=== PATIENT | female | born 1990 | race Caucasian/White ===

== ENCOUNTER → 2017-06-07 | Outpatient (CLI) | payer BC ==
[~2017-06-07] MED LIST: ACHD5005 PO; CEFD300C3 PO; CETI10CA PO; DOCU-143 PO; DOCU100C37 PO; FERR325T18 PO; IBUP-1773 PO; PREN-98 PO
--- NOTE | 2017-06-07 11:42 | Diagnostic Imaging Report ---
INDICATION: survey. TECHNIQUE: Multiple real-time grayscale images were obtained over the gravid uterus. COMPARISON: None. FINDINGS: There is a single live fetus in a breech presentation. The placenta is posterior and to the left. The amniotic fluid volume is normal. heart rate is recorded at 128 beats per minute. Cervical length is 5.1 cm. Kidneys, bladder, and stomach are unremarkable. brain and spine are unremarkable. There is a four-chamber heart. There is a three-vessel cord with normal cord insertion. Biometrical measurements are as follows: Biparietal 4.74 cm, age 20 weeks 3 days. Head circumference 17.46 cm, age 20 weeks 0 days. Abdominal circumference 15.54 cm, age 20 weeks 5 days. Femur length 3.48 cm, age 21 weeks 0 days. Sonographic estimate age: 20 weeks 4 days. Sonographic estimated date of delivery: 10-21-17. Estimated Weight: 373 gm (+/- 55 gm). LMP percentile: 62%. heart rate: 128 beats per minute. number: 1 of 1. IMPRESSION: Single live IUP of approximately 20-21 weeks gestational age. The estimated date of confinement sonographically is 10/21/2017. No complicating features are detected. Dictated by: Dictated on workstation # [id number]
== END ==
LOC: RAD 10:03
PROVIDERS: ATTEND Obstetrics & Gynecology
DX: Z34.92 Encounter for supervision of normal pregnancy, unspecified, second trimester (principal); Z3A.20 20 weeks gestation of pregnancy
CPT/HCPCS: 76805

== ENCOUNTER 2017-10-13 10:35 | Inpatient (IN) | payer BC ==
[2017-10-13] VITALS (47 sets, daily range): BP systolic 11–138; BP diastolic 1–90
[~2017-10-13] VITALS: Ht 167.6 cm; Wt 83.5 kg
[2017-10-13 11:08] LABS: BASOPHILS % (AUTO) 0 % (0-10); EOSINOPHILS # (AUTO) 0.3 10^3/uL (0.0-0.3); EOSINOPHILS % (AUTO) 3 % (0-10); HEMATOCRIT 34 % (35-52); HEMOGLOBIN 11.6 G/DL (11.5-16.0); LYMPHOCYTES % (AUTO) 18 % (12-44); MEAN CORPUSCULAR HEMOGLOBIN 31 PG (25-34); MEAN CORPUSCULAR HGB CONC 34 G/DL (32-36); MEAN CORPUSCULAR VOLUME 91 FL (80-99); MONOCYTES # (AUTO) 0.6 X 10^3 (0.0-1.0); MONOCYTES % (AUTO) 5 % (0-12); NEUTROPHILS # (AUTO) 8.3 X 10^3 (1.8-7.8); NEUTROPHILS % (AUTO) 74 % (42-75); PLATELET COUNT 152 10^3/uL (130-400); RED BLOOD COUNT 3.72 10^6/uL (4.35-5.85); RED CELL DISTRIBUTION WIDTH 13.1 % (10.0-14.5); WHITE BLOOD COUNT 11.3 10^3/uL (4.3-11.0)
--- NOTE | 2017-10-13 11:23 | History & Physical-OB ---
OB - Chief Complaint & HPI Date/Time Date of Admission: Date of Admission: Oct 13, 2017 at 10:35 am Time Seen by Provider: 11:00 Chief Complaint/History OB-Reason for Admission/Chief: Onset of Labor Hx : 2 Hx Para: 1 Expected Date of Delivery: Oct 22, 2017 Gestational Age in Weeks: 38 Gestational Age in Days: 5 Other reason for admission: Patient presented to the office with regular contractions since last night, found to have made cervical change since yesterdays exam. Admission Nurse Assessment Rev: Yes History of Labs A pos Antibody neg RI RPR NR HBsAg nR HIV NR GC neg GBS neg Allergies and Home Medications Allergies Coded Allergies: morphine (Unverified Allergy, Mild, RASH, 04/14/10) Home Medications Cetirizine HCl 10 Mg Capsule, 10 MG PO DAILY, (Reported) Docusate Sodium 100 Mg Capsule, 100 MG PO DAILY, (Reported) Docusate Sodium 100 Mg Capsule, 100 MG PO BID PRN for CONSTIPATION Prescribed by: JONAH MCDONALD on 07/26/15938 Ferrous Sulfate 325 Mg Tablet, 325 MG PO BID WITH MEALS Prescribed by: JONAH MCDONALD on 07/26/15938 Hydrocodone Bit/Acetaminophen 1 Each Tablet, 1-2 TAB PO Q4H PRN for PAIN Prescribed by: JONAH MCDONALD on 07/26/15938 Ibuprofen 600 Mg Tablet, 600 MG PO Q6H Prescribed by: JONAH MCDONALD on 07/26/15938 Vit37/Iron/Folic Acid 1 Each Tab.chew, 1 EACH PO DAILY, (Reported) Patient Home Medication List Home Medication List Reviewed: Yes OB - History Hx of Present Care: Yes Ultrasounds: Normal mid trimester US Obstetrical Complications: None Medical Complications: None Delivery History Hx Blood Disorders: No Adverse Rxn to Tranfusion: No Patient Past Medical History n/a Social History/Family History Recent Infectious Disease Expo: No Immunizations Hepatitis A: Yes Hepatitis B: Yes Tetanus Booster (TDap): Less than 5yrs OB - Admission Exam Physical Exam HEENT: NCAT Heart: Rhythm Normal Lungs: Clear Abdomen: Gravid Extremities: Normal Reflexes: Normal Cervical Dilatation: 4cm Effacement: 75% Station: -1 Membranes: Intact Heart Rate: 130's Accelerations: Accelerations Present Decelerations: No Decelerations Short Term Variability: Present Usp Variability: Average (6-25) Contractions on Admission: 6-10 Minutes Apart Intensity: Mild Labs Laboratory Tests Test 10/13/17 10:55 Range/Units White Blood Count 11.3 H 4.3-11.0 10^3/uL Red Blood Count 3.72 L 4.35-5.85 10^6/uL Hemoglobin 11.6 11.5-16.0 G/DL Hematocrit 34 L 35-52 % Mean Corpuscular Volume 91 80-99 FL Mean Corpuscular Hemoglobin 31 25-34 PG Mean Corpuscular Hemoglobin Concent 34 32-36 G/DL Red Cell Distribution Width 13.1 10.0-14.5 % Platelet Count 152 130-400 10^3/uL Mean Platelet Volume 12.0 H 7.4-10.4 FL Neutrophils (%) (Auto) 74 42-75 % Lymphocytes (%) (Auto) 18 12-44 % Monocytes (%) (Auto) 5 0-12 % Eosinophils (%) (Auto) 3 0-10 % Basophils (%) (Auto) 0 0-10 % Neutrophils # (Auto) 8.3 H 1.8-7.8 X 10^3 Lymphocytes # (Auto) 2.0 1.0-4.0 X 10^3 Monocytes # (Auto) 0.6 0.0-1.0 X 10^3 Eosinophils # (Auto) 0.3 0.0-0.3 10^3/uL Basophils # (Auto) 0.0 0.0-0.1 10^3/uL OB - Assessment/Plan/Diagnosis Assessment Assessment: active labor Admission Dx 27 yo @ 38.5 Active labor GBS neg TOLAC Admission Status: Inpatient Order (span 2 midnights) Reason for Inpatient Admission: 27 yo @ 38.5 Active labor GBS neg TOLAC Plan Induction Method: JONAH REYES DO Oct 13, 2017 11:23 am
[2017-10-13] MEDS ORDERED: SUFENTA 0.6MCG/ML BUPIVA 0.125 100 ML ONE (11:38)
[2017-10-13] MEDS: D5 LR IV SOLUTION 1,000 ML IV SCH (11:51)
[2017-10-13] MEDS ORDERED: fentaNYL INJECTION 100 MCG/2 ML AMP ONE (12:13)
[2017-10-13] MEDS ORDERED: OXYTOCIN/NORMAL SALINE 500 ML IV SCH ×2 (13:19→20:31)
[2017-10-13] MEDS ORDERED: OXYTOCIN/NORMAL SALINE 500 ML IV ONE (13:21)
[2017-10-13] MEDS: CATHETER FLUSH 10 ML SYR IV SCH (14:00)
[2017-10-13] MEDS ORDERED: LACTATED RINGERS 1,000 ML IV ONE (16:01)
[2017-10-13] MEDS ORDERED: METOCLOPRAMIDE INJ 10 MG/2 ML (REGLAN) IV PRN (16:15)
[2017-10-13] MEDS ORDERED: ONDANSETRON 4 MG/2 ML (SDV) Z0FRAN IV PRN (16:15)
[2017-10-13] MEDS ORDERED: NALOXONE 0.4 MG/ML 1 ML (NARCAN) VIAL IV PRN (16:15)
[2017-10-13] MEDS ORDERED: fentaNYL INJECTION 100 MCG/2 ML AMP INJ ONE (16:15)
[2017-10-13] MEDS ORDERED: EPIDURAL (SUFENTA 0.6MCG/ML BUPIVA 0.125%) 100 ML BAG EPI SCH (16:15)
[2017-10-13] MEDS ORDERED: LIDOCAINE/EPI 2% 1:200,00 (XYLOCAINE) 10 ML VIAL ONE ×2 (19:38)
--- NOTE | 2017-10-13 20:38 | OB Labor & Delivery Record ---
L&D History Date of Service Date of Service: Oct 13, 2017 History Expected Date of Delivery: Oct 22, 2017 Gestational Age in Weeks: 38 Hx : 2 Hx Para: 1 Complications Events: Routine care Operative Indications (Cesarea: N/A-Vaginal Delivery Intrapartal Events: Ineffective Pushing Other Complications significant labial and vaginal wall swelling/edema L&D Stage1 Stage One Onset of Labor - Date: Oct 13, 2017 Monitors and Tracing Monitor Mode: External Heart Rate: 125 Monitor Accelerations: Uniform Monitor Decelerations: None Station: 0 Director [employer]ing Variability: Average (6-10) Short Term Variability: Present Presentation: Vertex Vital Signs VS - Last 72 Hours, by Label 10/13/17 10/13/17 10/13/17 10/13/17 10:47 11:50 11:55 12:00 Pulse 101 83 82 72 Resp 18 18 18 18 B/P (MAP) 125/71 (89) 128/65 (86) 132/68 (89) 114/72 (86) Pulse Ox 100 99 98 O2 Delivery Room Air Room Air Room Air Room Air 10/13/17 10/13/17 10/13/17 10/13/17 12:05 12:10 12:15 12:20 Pulse 82 78 92 73 Resp 18 18 18 18 B/P (MAP) 122/77 (92) 125/79 (94) 119/66 (83) 118/62 (80) Pulse Ox 98 99 98 98 O2 Delivery Room Air Room Air Room Air Room Air 10/13/17 10/13/17 10/13/17 10/13/17 12:25 12:30 12:45 13:00 Pulse 80 68 71 80 Resp 18 18 18 18 B/P (MAP) 118/66 (83) 126/65 (85) 117/66 (83) 120/67 (84) Pulse Ox 97 96 96 97 O2 Delivery Room Air Room Air Room Air Room Air 10/13/17 10/13/17 10/13/17 10/13/17 13:15 13:30 13:45 14:00 Pulse 71 86 68 61 Resp 18 18 18 18 B/P (MAP) 111/61 (78) 118/69 (85) 111/66 (81) 110/58 (75) Pulse Ox 97 98 96 96 O2 Delivery Room Air Room Air Room Air Room Air 10/13/17 10/13/17 10/13/17 10/13/17 14:15 14:30 14:45 14:51 Temp 97.4 Pulse 66 70 64 Resp 18 18 18 B/P (MAP) 107/58 (74) 109/64 (79) 110/60 (77) Pulse Ox 97 97 97 O2 Delivery Room Air Room Air Room Air 10/13/17 10/13/17 10/13/17 10/13/17 15:00 15:15 15:30 15:45 Pulse 79 71 66 63 Resp 18 18 18 18 B/P (MAP) 116/56 (76) 120/58 (78) 113/63 (80) 116/70 (85) Pulse Ox 99 97 97 98 O2 Delivery Room Air Room Air Room Air Room Air 10/13/17 10/13/17 10/13/17 10/13/17 16:00 16:15 16:30 16:45 Pulse 64 74 71 65 Resp 18 18 18 18 B/P (MAP) 109/68 (82) 110/67 (81) 119/62 (81) 116/66 (83) Pulse Ox 98 98 98 98 O2 Delivery Room Air Room Air Room Air Room Air 10/13/17 10/13/17 10/13/17 10/13/17 17:00 17:15 17:30 17:45 Pulse 64 66 65 71 Resp 18 18 18 18 B/P (MAP) 118/66 (83) 112/65 (81) 113/63 (80) 120/59 (79) Pulse Ox 98 98 98 98 O2 Delivery Room Air Room Air Room Air Room Air 10/13/17 10/13/17 10/13/17 10/13/17 18:00 18:15 18:30 18:45 Pulse 68 63 81 70 Resp 18 18 18 18 B/P (MAP) 114/1 (38) 136/63 (87) 112/60 (77) 119/58 (78) Pulse Ox 98 93 99 100 O2 Delivery Room Air Room Air Room Air Room Air 10/13/17 19:00 Pulse 74 Resp 18 B/P (MAP) 131/62 (85) Pulse Ox 99 O2 Delivery Room Air Rupture of Membranes Spontaneous Ruture of Membrane: No Amniotic Membrane Rupture Time: 1220 Amniotic Membrane Fluid Desc.: Clear Vaginal Bleeding Description: Normal Show Induction/Anesthesia Epidural Cath Placement - Time: 1203 Progress/Notes Pitocin augmentation started per my protocol after AROM performed and epidural received. Patient progressed over the several hours to complete and +1 station L&D Stage2 Stage Two Stage II Date: Oct 13, 2017 Monitors and Tracing Monitor Mode: External Heart Rate: 125 Monitor Accelerations: Uniform Monitor Decelerations: Variable Short Term Variability: Present Position: Right Occiput Anterior Presentation: Vertex Signs of Distress by FHT Signs of Distress Repetitive deepening variable decelerations into the 50s to 60s, patient progressed vertex to +2-+3 station allow for low vacuum extraction. RML cut, and area infiltrated with 1%lidocaine with epi. Saginal suture identified and kiwi cup placed down this, avoiding the fontanelles. With the next maternal push, vacuum suction appled to 550mm Hg, and with gentle downward then extension of the head, the infants head is delivered over RML. Suction released , and the anterior then posterior shoulders are then delivered without difficulty. The infant is then pulled out onto mothers abdomen. Cord Descript/Complications Cord Vessel Description: 3 Vessels Delivery Type Infant Delivery Method: Low Vacuum Extraction Anterior Shoulder: Left Episiotomy/Perineal Laceration Laceraction(s)/Extensions: Yes Episiotomy Description: Right Mediolateral Degree (describe repair) RML repaired in usual fashion with 3-0 and 2-0 vicryl suture. Superficial extension toward the rectum involving only cutaneous skin layer. Condition of Delivery 1 minute Comment: 8 5 minute Comment: 9 Notes Live female weight 8lbs 10 oz. Condition of Infant Condition of Infant: Living Exam: No Observed Abnormalities Resuscitation Resuscitation: N/A - Spontaneous Resp L&D Stage3 Stage Three Stage III Date: Oct 13, 2017 Pictocin Pitocin Administration mu/min: 10 Pitocin ml/hr: 10 Pitocin Administration Comment: 30 mu wide open ran after delivery of placenta Placenta Delivery Placenta Delivery: Spontaneous Delivery Summary Summary Estimated blood loss (mL): 450 Attending at delivery: Jonah Mcdonald DO Condition of Delivery Examined: Cervix Examined, Uterus Explored Post Hemorrhage: No Condition of Mother stable Condition of (s) stable JONAH MCDONALD DO Oct 13, 2017 8:38 pm
--- NOTE | 2017-10-13 20:41 | Discharge Inst-Women's Service ---
Discharge Inst-Women's Serv Depart Medication/Instructions New, Converted or Re-Newed RX: RX on Chart Consults/Follow Up Additional Follow Up: Yes Orders/Referrals Dr. Mcdonald in 6 weeks Activity Activity: Activity as Tolerated Driving Instructions: No Driving for 1 Week NO SMOKING: NO SMOKING Nothing Inside Vagina: No Douching, No [place], No Tampons Diet Discharge Diet: No Restrictions Symptoms to Report to : Bleeding Excessive, Pain Increased, Fever Over 101 Degrees F, Vaginal Bleeding Increase, Questions/Concerns For Any Problems or Questions: Contact Your Physician Skin/Wound Care Bathing Instructions: Shower (x 2 weeks or sitz baths) JONAH MCDONALD DO Oct 13, 2017 8:41 pm
[2017-10-13] MEDS ORDERED: ACHD5005 PO (20:43)
[2017-10-13] MEDS ORDERED: DIBU30OI TOP (20:43)
[2017-10-13] MEDS ORDERED: FERR325T18 PO (20:43)
[2017-10-13] MEDS ORDERED: IBUP-844 PO (20:43)
[2017-10-13] MEDS ORDERED: DOCU100C37 PO (20:43)
[2017-10-13] MEDS ORDERED: Benzocaine/Menthol TP (20:43)
[2017-10-13] MEDS ORDERED: TETANUS,DIPTH,PERTUSS P/F (BOOSTRIX) 0.5 ML VIAL IM ONE (20:45)
[2017-10-13] MEDS ORDERED: MEASLES,MUMPS,RUBELLA 1 EA INJ SQ ONE (20:45)
[2017-10-13] MEDS ORDERED: WITCH HAZEL(TUCKS) 40 EA JAR TOP PRN (20:45)
[2017-10-13] MEDS ORDERED: DIBUCAINE (NUPERCAINAL) 1% OINT 30 GM TOP PRN (20:45)
[2017-10-13] MEDS ORDERED: BENZOCAINE/MENTHOL (DERMOPLAST) 56 ML CAN TP PRN (20:45)
[2017-10-13] MEDS ORDERED: CATHETER FLUSH 10 ML SYR IV SCH (22:00)
[2017-10-14 00:55] VITALS: BP 116/60
[2017-10-14 04:00] VITALS: BP 108/62
[2017-10-14] MEDS: IBUPROFEN 600 MG (MOTRIN) TAB PO SCH ×4 (05:08→20:28)
[2017-10-14 06:11] LABS: BASOPHILS % (AUTO) 0 % (0-10); EOSINOPHILS # (AUTO) 0.3 10^3/uL (0.0-0.3); EOSINOPHILS % (AUTO) 3 % (0-10); HEMATOCRIT 26 % (35-52); HEMOGLOBIN 8.8 G/DL (11.5-16.0); LYMPHOCYTES # (AUTO) 2.7 X 10^3 (1.0-4.0); LYMPHOCYTES % (AUTO) 20 % (12-44); MEAN CORPUSCULAR HEMOGLOBIN 32 PG (25-34); MEAN CORPUSCULAR HGB CONC 34 G/DL (32-36); MEAN CORPUSCULAR VOLUME 92 FL (80-99); MEAN PLATELET VOLUME 11.8 FL (7.4-10.4); MONOCYTES # (AUTO) 0.9 X 10^3 (0.0-1.0); MONOCYTES % (AUTO) 6 % (0-12); NEUTROPHILS # (AUTO) 9.4 X 10^3 (1.8-7.8); NEUTROPHILS % (AUTO) 71 % (42-75); PLATELET COUNT 130 10^3/uL (130-400); RED BLOOD COUNT 2.78 10^6/uL (4.35-5.85); RED CELL DISTRIBUTION WIDTH 12.7 % (10.0-14.5); WHITE BLOOD COUNT 13.2 10^3/uL (4.3-11.0)
[2017-10-14] MEDS: DOCUSATE SODIUM 100 MG (COLACE) CAP PO SCH ×2 (07:50→20:28)
[2017-10-14] MEDS: PRENATAL VITAMIN 1 EA TAB PO SCH (07:50)
[2017-10-14] MEDS: FERROUS SULF 325 MG (IRON) TAB PO SCH (07:50)
[2017-10-14] MEDS: HYDROcodone/APAP 5 MG/325 MG (LORTAB) TAB PO PRN ×2 (07:56→16:40)
[2017-10-14 08:00] VITALS: BP 113/68
--- NOTE | 2017-10-14 08:08 | Anesthesia-Regional Post-Op ---
Regional Patient Condition Mental Status: Alert, Oriented x3 Circulation: Same as Pre-Op Headache: Absent Sensation: Full Recovery Motor Block: Absent Post Op Complications Complications None Follow Up Care/Instructions Patient Instructions None needed. Anesthesia/Patient Condition Patient is doing well, no complaints, stable vital signs, no apparent adverse anesthesia problems. No complications reported per nursing. XI SUNG CRNA Oct 14, 2017 08:08
--- NOTE | 2017-10-14 10:53 | Postpartum Progress Note ---
Note Note Day # 1 Subjective: Patient is without complaints. Ambulating, voiding. Tolerating a regular diet without nausea or vomiting. Normal lochia. Pain is well controlled with oral pain medications. Objective: Vital Sign - Last 24 Hours 10/13/17 10/13/17 10/13/17 10/13/17 11:50 11:55 12:00 12:05 Pulse 83 82 72 82 Resp 18 18 18 18 B/P (MAP) 128/65 (86) 132/68 (89) 114/72 (86) 122/77 (92) Pulse Ox 100 99 98 98 O2 Delivery Room Air Room Air Room Air Room Air 10/13/17 10/13/17 10/13/17 10/13/17 12:10 12:15 12:20 12:25 Pulse 78 92 73 80 Resp 18 18 18 18 B/P (MAP) 125/79 (94) 119/66 (83) 118/62 (80) 118/66 (83) Pulse Ox 99 98 98 97 O2 Delivery Room Air Room Air Room Air Room Air 10/13/17 10/13/17 10/13/17 10/13/17 12:30 12:45 13:00 13:15 Pulse 68 71 80 71 Resp 18 18 18 18 B/P (MAP) 126/65 (85) 117/66 (83) 120/67 (84) 111/61 (78) Pulse Ox 96 96 97 97 O2 Delivery Room Air Room Air Room Air Room Air 10/13/17 10/13/17 10/13/17 10/13/17 13:30 13:45 14:00 14:15 Pulse 86 68 61 66 Resp 18 18 18 18 B/P (MAP) 118/69 (85) 111/66 (81) 110/58 (75) 107/58 (74) Pulse Ox 98 96 96 97 O2 Delivery Room Air Room Air Room Air Room Air 10/13/17 10/13/17 10/13/17 10/13/17 14:30 14:45 14:51 15:00 Temp 97.4 Pulse 70 64 79 Resp 18 18 18 B/P (MAP) 109/64 (79) 110/60 (77) 116/56 (76) Pulse Ox 97 97 99 O2 Delivery Room Air Room Air Room Air 10/13/17 10/13/17 10/13/17 10/13/17 15:15 15:30 15:45 16:00 Pulse 71 66 63 64 Resp 18 18 18 18 B/P (MAP) 120/58 (78) 113/63 (80) 116/70 (85) 109/68 (82) Pulse Ox 97 97 98 98 O2 Delivery Room Air Room Air Room Air Room Air 10/13/17 10/13/17 10/13/17 10/13/17 16:15 16:30 16:45 17:00 Pulse 74 71 65 64 Resp 18 18 18 18 B/P (MAP) 110/67 (81) 119/62 (81) 116/66 (83) 118/66 (83) Pulse Ox 98 98 98 98 O2 Delivery Room Air Room Air Room Air Room Air 10/13/17 10/13/17 10/13/17 10/13/17 17:15 17:30 17:45 18:00 Pulse 66 65 71 68 Resp 18 18 18 18 B/P (MAP) 112/65 (81) 113/63 (80) 120/59 (79) 114/1 (38) Pulse Ox 98 98 98 98 O2 Delivery Room Air Room Air Room Air Room Air 10/13/17 10/13/17 10/13/17 10/13/17 18:15 18:30 18:45 19:00 Pulse 63 81 70 74 Resp 18 18 18 18 B/P (MAP) 136/63 (87) 112/60 (77) 119/58 (78) 131/62 (85) Pulse Ox 93 99 100 99 O2 Delivery Room Air Room Air Room Air Room Air 10/13/17 10/13/17 10/13/17 10/13/17 19:15 19:30 19:45 20:00 Temp 96.7 96.8 Pulse 79 79 84 Resp 18 18 18 B/P (MAP) 118/74 (89) 113/58 (76) 108/52 (70) Pulse Ox 99 99 99 O2 Delivery Room Air Room Air Room Air Room Air 10/13/17 10/13/17 10/13/17 10/13/17 20:15 20:30 20:45 21:00 Temp 96.8 Pulse 73 78 79 122 Resp 18 18 18 18 B/P (MAP) 106/52 (70) 109/53 (71) 113/56 (75) 118/54 (75) Pulse Ox 99 99 99 99 O2 Delivery Room Air Room Air Room Air Room Air 10/13/17 10/13/17 10/13/17 10/13/17 21:45 22:00 22:15 22:30 Pulse 173 78 78 81 Resp 18 18 18 18 B/P (MAP) 138/90 (106) 114/63 (80) 110/61 (77) 114/58 (76) Pulse Ox 99 99 99 99 O2 Delivery Room Air Room Air Room Air Room Air 10/14/17 10/14/17 10/14/17 00:55 04:00 08:00 Temp 97.9 97.3 97.4 Pulse 88 76 71 Resp 18 18 21 B/P (MAP) 116/60 (78) 108/62 (77) 113/68 (83) Pulse Ox 98 99 99 O2 Delivery Room Air Room Air Room Air Physical Exam: General - Alert and oriented, no apparent distress Abdomen - Soft, appropriately tender to palpation, non-distended, fundus firm at umbilicus Extremities - no edema, negative Rian's bilaterally Assessment: PPD 1 VAVD Acute blood loss anemia Plan: Routine care. Encourage breast feeding. Encourage ambulation. Ferrous sulfate supplementation. Plan for discharge tomorrow Vitals - Labs Vital Signs - I&O Vital Signs Date Time Temp Pulse Resp B/P (MAP) Pulse Ox O2 Delivery O2 Flow Rate FiO2 10/14/17 08:00 97.4 71 21 113/68 (83) 99 Room Air 10/14/17 04:00 97.3 76 18 108/62 (77) 99 Room Air 10/14/17 00:55 97.9 88 18 116/60 (78) 98 Room Air 10/13/17 22:30 81 18 114/58 (76) 99 Room Air 10/13/17 22:15 78 18 110/61 (77) 99 Room Air 10/13/17 22:00 78 18 114/63 (80) 99 Room Air 10/13/17 21:45 173 18 138/90 (106) 99 Room Air 10/13/17 21:00 96.8 122 18 118/54 (75) 99 Room Air 10/13/17 20:45 79 18 113/56 (75) 99 Room Air 10/13/17 20:30 78 18 109/53 (71) 99 Room Air 10/13/17 20:15 73 18 106/52 (70) 99 Room Air 10/13/17 20:00 96.8 84 18 108/52 (70) 99 Room Air 10/13/17 19:45 Room Air 10/13/17 19:30 79 18 113/58 (76) 99 Room Air 10/13/17 19:15 96.7 79 18 118/74 (89) 99 Room Air 10/13/17 19:00 74 18 131/62 (85) 99 Room Air 10/13/17 18:45 70 18 119/58 (78) 100 Room Air 10/13/17 18:30 81 18 112/60 (77) 99 Room Air 10/13/17 18:15 63 18 136/63 (87) 93 Room Air 10/13/17 18:00 68 18 114/1 (38) 98 Room Air 10/13/17 17:45 71 18 120/59 (79) 98 Room Air 10/13/17 17:30 65 18 113/63 (80) 98 Room Air 10/13/17 17:15 66 18 112/65 (81) 98 Room Air 10/13/17 17:00 64 18 118/66 (83) 98 Room Air 10/13/17 16:45 65 18 116/66 (83) 98 Room Air 10/13/17 16:30 71 18 119/62 (81) 98 Room Air 10/13/17 16:15 74 18 110/67 (81) 98 Room Air 10/13/17 16:00 64 18 109/68 (82) 98 Room Air 10/13/17 15:45 63 18 116/70 (85) 98 Room Air 10/13/17 15:30 66 18 113/63 (80) 97 Room Air 10/13/17 15:15 71 18 120/58 (78) 97 Room Air 10/13/17 15:00 79 18 116/56 (76) 99 Room Air 10/13/17 14:51 97.4 10/13/17 14:45 64 18 110/60 (77) 97 Room Air 10/13/17 14:30 70 18 109/64 (79) 97 Room Air 10/13/17 14:15 66 18 107/58 (74) 97 Room Air 10/13/17 14:00 61 18 110/58 (75) 96 Room Air 10/13/17 13:45 68 18 111/66 (81) 96 Room Air 10/13/17 13:30 86 18 118/69 (85) 98 Room Air 10/13/17 13:15 71 18 111/61 (78) 97 Room Air 10/13/17 13:00 80 18 120/67 (84) 97 Room Air 10/13/17 12:45 71 18 117/66 (83) 96 Room Air 10/13/17 12:30 68 18 126/65 (85) 96 Room Air 10/13/17 12:25 80 18 118/66 (83) 97 Room Air 10/13/17 12:20 73 18 118/62 (80) 98 Room Air 10/13/17 12:15 92 18 119/66 (83) 98 Room Air 10/13/17 12:10 78 18 125/79 (94) 99 Room Air 10/13/17 12:05 82 18 122/77 (92) 98 Room Air 10/13/17 12:00 72 18 114/72 (86) 98 Room Air 10/13/17 11:55 82 18 132/68 (89) 99 Room Air 10/13/17 11:50 83 18 128/65 (86) 100 Room Air Labs Laboratory Tests 10/13/17 10:55: White Blood Count 11.3H, Red Blood Count 3.72L, Hemoglobin 11.6, Hematocrit 34L , Mean Corpuscular Volume 91, Mean Corpuscular Hemoglobin 31, Mean Corpuscular Hemoglobin Concent 34, Red Cell Distribution Width 13.1, Platelet Count 152, Mean Platelet Volume 12.0H, Neutrophils (%) (Auto) 74, Lymphocytes (%) (Auto) 18 , Monocytes (%) (Auto) 5, Eosinophils (%) (Auto) 3, Basophils (%) (Auto) 0, Neutrophils # (Auto) 8.3H, Lymphocytes # (Auto) 2.0, Monocytes # (Auto) 0.6, Eosinophils # (Auto) 0.3, Basophils # (Auto) 0.0 10/14/17 05:50: White Blood Count 13.2H, Red Blood Count 2.78L, Hemoglobin 8.8#L, Hematocrit 26L , Mean Corpuscular Volume 92, Mean Corpuscular Hemoglobin 32, Mean Corpuscular Hemoglobin Concent 34, Red Cell Distribution Width 12.7, Platelet Count 130, Mean Platelet Volume 11.8H, Neutrophils (%) (Auto) 71, Lymphocytes (%) (Auto) 20 , Monocytes (%) (Auto) 6, Eosinophils (%) (Auto) 3, Basophils (%) (Auto) 0, Neutrophils # (Auto) 9.4H, Lymphocytes # (Auto) 2.7, Monocytes # (Auto) 0.9, Eosinophils # (Auto) 0.3, Basophils # (Auto) 0.0 JONAH MCDONALD DO Oct 14, 2017 10:53 am
[2017-10-14 12:30] VITALS: BP 118/59
[2017-10-14 16:00] VITALS: BP 115/66
[2017-10-14] MEDS: CATHETER FLUSH 10 ML SYR IV SCH (19:43)
[2017-10-14 20:05] VITALS: BP 121/75
[2017-10-14] MEDS: D5 LR IV SOLUTION 1,000 ML IV SCH (21:03)
[2017-10-15 02:00] VITALS: BP 108/67
[2017-10-15] MEDS: IBUPROFEN 600 MG (MOTRIN) TAB PO SCH ×2 (02:12→08:00)
[2017-10-15] MEDS: FERROUS SULF 325 MG (IRON) TAB PO SCH (07:59)
[2017-10-15 08:00] VITALS: BP 112/70
[2017-10-15] MEDS: PRENATAL VITAMIN 1 EA TAB PO SCH (08:00)
[2017-10-15] MEDS: DOCUSATE SODIUM 100 MG (COLACE) CAP PO SCH (08:00)
--- NOTE | 2017-10-15 08:41 | Postpartum Progress Note ---
Note Note Day # 2 Subjective: Patient is without complaints. Ambulating, voiding. Tolerating a regular diet without nausea or vomiting. Normal lochia. Pain is well controlled with oral pain medications. Objective: Vital Sign - Last 24 Hours 10/14/17 10/14/17 10/14/17 10/15/17 12:30 16:00 20:05 02:00 Temp 96.8 97.9 97.6 96.9 Pulse 84 81 74 70 Resp 21 16 16 17 B/P (MAP) 118/59 (78) 115/66 (82) 121/75 (90) 108/67 (81) Pulse Ox 99 99 97 98 O2 Delivery Room Air Room Air Room Air Room Air Physical Exam: General - Alert and oriented, no apparent distress Abdomen - Soft, appropriately tender to palpation, non-distended, fundus firm at umbilicus Extremities - no edema, negative Rian's bilaterally Assessment: PPD 2 VAVD Plan: Routine care. Encourage breast feeding. Encourage ambulation. Ferrous sulfate supplementation. Plan for discharge today Vitals - Labs Vital Signs - I&O Vital Signs Date Time Temp Pulse Resp B/P (MAP) Pulse Ox O2 Delivery O2 Flow Rate FiO2 10/15/17 02:00 96.9 70 17 108/67 (81) 98 Room Air 10/14/17 20:05 97.6 74 16 121/75 (90) 97 Room Air 10/14/17 16:00 97.9 81 16 115/66 (82) 99 Room Air 10/14/17 12:30 96.8 84 21 118/59 (78) 99 Room Air JONAH MCDONALD DO Oct 15, 2017 8:41 am
[2017-10-15] MEDS: HYDROcodone/APAP 5 MG/325 MG (LORTAB) TAB PO PRN (12:19)
== END 2017-10-15 12:25 | disposition home or self-care (01) | DRG 775 ==
LOC: LDRP 10:35
PROVIDERS: ADMIT Obstetrics & Gynecology; ATTEND Obstetrics & Gynecology
PROC: 10D07Z6 Extraction of Products of Conception, Vacuum, Via Natural or Artificial Opening (ICD-10-PCS; principal; 2017-10-13)
PROC: 0W8NXZZ Division of Female Perineum, External Approach (ICD-10-PCS; 2017-10-13)
DX: O76 Abnormality in fetal heart rate and rhythm complicating labor and delivery (principal); O90.81 Anemia of the puerperium; D62 Acute posthemorrhagic anemia; O26.893 Other specified pregnancy related conditions, third trimester; N90.89 Other specified noninflammatory disorders of vulva and perineum; Z3A.38 38 weeks gestation of pregnancy; Z37.0 Single live birth
CPT/HCPCS: 36415; 85025; 86850; 86900; 86901; 88307

== ENCOUNTER → 2019-05-26 | Outpatient (CLI) | payer BC ==
[~2019-05-26] MED LIST changes: +Benzocaine/Menthol TP; +DIBU30OI TOP; +IBUP-844 PO
--- NOTE | 2019-05-26 09:42 | Diagnostic Imaging Report ---
PROCEDURE: US Gallbladder. TECHNIQUE: Multiple real-time grayscale images were obtained over the right upper quadrant in various projections. INDICATION: Epigastric pain. Liver measures 16.1 cm. No discrete liver mass is detected. The portal vein is patent and shows normal direction of flow. Gallbladder demonstrates some questionable minimal sludge versus small stones. No wall thickening is seen. No biliary duct dilatation is identified. Pancreas is unremarkable. Aorta is nonaneurysmal. IVC is patent. Right kidney is without calculi or hydronephrosis. There is no ascites. IMPRESSION: Questionable minimal gallbladder sludge or small calculi. There is no evidence of acute cholecystitis. Dictated by: Dictated on workstation # [id number]
== END ==
LOC: RAD 07:50
PROVIDERS: ATTEND Surgery
DX: R10.13 Epigastric pain (principal)
CPT/HCPCS: 76705

== ENCOUNTER 2019-06-13 06:55 | Outpatient (CLI) | payer BC ==
[~2019-06-13] VITALS: Ht 167.7 cm; Wt 68.2 kg
[2019-06-15] MEDS ORDERED: DOCU-143 PO (11:53)
[2019-06-15] MEDS ORDERED: ACHD5005 PO (11:53)
== END 2019-06-13 10:31 | disposition home or self-care (01) ==
LOC: PREOP 06:55
PROVIDERS: ATTEND Surgery
DX: Z01.818 Encounter for other preprocedural examination (principal)

== ENCOUNTER → 2020-08-01 | Outpatient (CLI) | payer BC ==
--- NOTE | 2020-08-01 14:50 | Diagnostic Imaging Report ---
INDICATION: . Anatomic survey. 20 weeks, 2 days. TECHNIQUE: Multiple real-time grayscale images were obtained over the gravid uterus. COMPARISON: None. FINDINGS: The cervix measures 3 cm in length. The placenta is posterior with no evidence of previa. There is a single live intrauterine gestation in cephalic presentation. The cerebellum and cisterna magna are seen. The lateral ventricle is seen. A four-chamber heart is seen. The right and left ventricular outflow tracts are shown. The stomach is seen. The kidneys are seen. The cord insertion is seen. A three-vessel cord is demonstrated with two uterine arteries. The bladder is seen. The upper spine is seen. The lower spine is seen in transverse images but not sagittal. heart rate measures 144 BPM. Amniotic fluid index was not measured, but subjectively the amniotic fluid appears normal with vertical pockets measuring 2.8 cm. Biometrical measurements are as follows: Biparietal 4.33 cm, age 19 weeks 1 days. Head circumference 16.90 cm, age 19 weeks 4 days. Abdominal circumference 15.10 cm, age 20 weeks 3 days. Femur length 3.09 cm, age 19 weeks 5 days. Sonographic estimate age: 19 weeks 5 days. Sonographic estimated date of delivery: 12/21/2020. Estimated Weight: 320 gm (+/- 47 gm). LMP percentile: 26%. heart rate: 144 beats per minute. number: 1 of 1. IMPRESSION: 1. Single live intrauterine gestation measuring at 19 weeks and 5 days which is within range of the clinical dates. 2. No abnormality identified on the anatomic survey. Dictated by: Dictated on workstation # [id number]
== END ==
LOC: RAD 13:00
PROVIDERS: ATTEND Obstetrics & Gynecology
DX: Z34.02 Encounter for supervision of normal first pregnancy, second trimester (principal); Z3A.19 19 weeks gestation of pregnancy
CPT/HCPCS: 76805

== ENCOUNTER 2020-12-04 08:15 | Inpatient (IN) | payer BC ==
[2020-12-04] VITALS (37 sets, daily range): BP systolic 100–169; BP diastolic 53–78
[~2020-12-04] VITALS: Ht 167 cm; Wt 78.2 kg
[2020-12-04] MEDS ORDERED: AMPICILLIN FOR IV USE 2,000 MG in WATER (STERILE) FOR INJECTION 14.8 ML IV SCH (09:14)
[2020-12-04] MEDS ORDERED: D5 LR IV SOLUTION 1,000 ML IV SCH (09:15)
[2020-12-04] MEDS ORDERED: OXYTOCIN PRE-MIX DRIP 500 ML IV SCH ×2 (09:15→09:45)
[2020-12-04] MEDS ORDERED: OXYTOCIN PRE-MIX DRIP 500 ML IV ONE ×2 (09:33→16:25)
[2020-12-04] MEDS ORDERED: AMPICILLIN 2,000 MG/14.8 ML (IV USE) ONE (09:33)
--- NOTE | 2020-12-04 09:44 | History & Physical-OB ---
OB - Chief Complaint & HPI Date/Time Date of Admission: Date of Admission: Dec 04, 2020 at 9:03 am Date seen by a Provider: Dec 04, 2020 Time Seen by a Provider: 09:30 Chief Complaint/History OB-Reason for Admission/Chief: Induction of Labor Hx : 3 Hx Para: 2 Expected Date of Delivery: Dec 17, 2020 Gestational Age in Weeks: 38 Gestational Age in Days: 1 Indication for induction: medical complication Other reason for admission: Patient admitted for IOL secondary to oligohydramnios noted on US. She was measuring small in the office and BPP with EFW was performed. Fetus was measuring appropriately, however LEXY was <4 cm. Due to this recommendation was made for delivery due to her being past 37 weeks. Admission Nurse Assessment Rev: Yes History of Labs GBS pos Allergies and Home Medications Allergies Coded Allergies: morphine (Unverified Allergy, Mild, RASH, 04/14/10) Home Medications Docusate Sodium 100 Mg Capsule, 100 MG PO BID Prescribed by: ASA SHOEMAKER on 06/15/19 1153 Hydrocodone Bit/Acetaminophen 1 Tab Tab, 1-2 TAB PO Q6H PRN for PAIN-MODERATE Prescribed by: ASA SHOEMAKER on 06/15/19 1153 Patient Home Medication List Home Medication List Reviewed: Yes OB - History Hx of Present Care: Yes Ultrasounds: Abnormal US findings (oligohydramnios) Obstetrical Complications: None Medical Complications: None Delivery History Hx Blood Disorders: No Adverse Rxn to Tranfusion: No Patient Past Medical History n/a Immunizations Hepatitis A: Yes Hepatitis B: Yes Tetanus Booster (TDap): Less than 5yrs Date of Influenza Vaccine: Jan 17, 2019 OB - Admission Exam Physical Exam HEENT: NCAT Heart: Rhythm Normal Lungs: Clear Abdomen: Gravid Extremities: Normal Reflexes: Normal Cervical Dilatation: 2cm Effacement: 75% Station: -1 Membranes: Intact Heart Rate: 130's Accelerations: Accelerations Present Decelerations: No Decelerations Short Term Variability: Present Chcf Variability: Average (6-25) Contractions on Admission: 6-10 Minutes Apart Intensity: Mild OB - Assessment/Plan/Diagnosis Assessment Assessment: induction of labor Admission Dx 30 yo @ 38.1 TOLAC- history of successful x 1 Oligohydramnios GBS pos Admission Status: Inpatient Order (span 2 midnights) Reason for Inpatient Admission: IOL at 38 weeks Plan Plan: Induction Induction Method: per Pitocin Protocol JONAH MCDONALD DO Dec 04, 2020 9:44 am
[2020-12-04 10:36] LABS: BASOPHILS # (AUTO) 0.1 10^3/uL (0.0-0.1); BASOPHILS % (AUTO) 0 % (0-10); EOSINOPHILS # (AUTO) 0.3 10^3/uL (0.0-0.3); EOSINOPHILS % (AUTO) 3 % (0-10); HEMATOCRIT 35 % (35-52); HEMOGLOBIN 11.6 g/dL (11.5-16.0); LYMPHOCYTES % (AUTO) 18 % (12-44); MEAN CORPUSCULAR HEMOGLOBIN 32 pg (25-34); MEAN CORPUSCULAR HGB CONC 33 g/dL (32-36); MEAN CORPUSCULAR VOLUME 96 fL (80-99); MEAN PLATELET VOLUME 12.4 fL (9.0-12.2); MONOCYTES # (AUTO) 0.6 10^3/uL (0.0-1.0); MONOCYTES % (AUTO) 6 % (0-12); NEUTROPHILS # (AUTO) 8.2 10^3/uL (1.8-7.8); NEUTROPHILS % (AUTO) 73 % (42-75); PLATELET COUNT 136 10^3/uL (130-400); WHITE BLOOD COUNT 11.3 10^3/uL (4.3-11.0)
[2020-12-04] MEDS ORDERED: fentaNYL 2 mcg/ml BUPIVA 0.125 100 ML ONE (10:51)
[2020-12-04] MEDS ORDERED: NALOXONE 0.4 MG/ML 1 ML (NARCAN) VIAL IV PRN (11:30)
[2020-12-04] MEDS ORDERED: ONDANSETRON 4 MG/2 ML (SDV) Z0FRAN IV PRN (11:30)
[2020-12-04] MEDS ORDERED: EPIDURAL (fentaNYL 2 MCG/ML BUPIVA 0.125%)100 ML BAG EPI PRN (11:30)
[2020-12-04] MEDS ORDERED: LACTATED RINGERS 1,000 ML IV ONE ×2 (11:30)
[2020-12-04] MEDS ORDERED: fentaNYL INJ 100 MCG/2 ML AMP INJ ONE (11:30)
[2020-12-04] MEDS ORDERED: BUPIVACAINE 0.25% 30 ML (SENSORCAINE) VIAL ONE (11:38)
[2020-12-04] MEDS ORDERED: fentaNYL INJ 100 MCG/2 ML AMP ONE (11:38)
[2020-12-04] MEDS ORDERED: fentaNYL 2 mcg/ml BUPIVA 0.125 100 ML EPI PRN (12:00)
[2020-12-04] MEDS ORDERED: AMPICILLIN FOR IV USE 1,000 MG in WATER (STERILE) FOR INJECTION 7.4 ML IV SCH (13:15)
[2020-12-04] MEDS: LACTATED RINGERS 1,000 ML IV ONE ×2 (15:10→15:15)
[2020-12-04] MEDS: CATHETER FLUSH 10 ML SYR IV SCH ×2 (15:11→23:10)
[2020-12-04] MEDS: OXYTOCIN PRE-MIX DRIP 500 ML IV SCH ×2 (15:57→16:27)
[2020-12-04] MEDS ORDERED: WITCH HAZEL(TUCKS) 40 EA JAR TOP PRN (16:45)
[2020-12-04] MEDS ORDERED: BENZOCAINE/MENTHOL (DERMOPLAST) 56 ML CAN TP PRN (16:45)
--- NOTE | 2020-12-04 16:53 | Discharge Inst-Women's Service ---
Discharge Inst-Women's Serv Depart Medication/Instructions New, Converted or Re-Newed RX: RX on Chart Final Diagnosis PPD 1 NVD Problems Reviewed?: Yes Consults/Follow Up Additional Follow Up: Yes Orders/Referrals Dr. Mcdonald in 6 weeks Activity Activity: Activity as Tolerated Driving Instructions: No Driving for 1 Week NO SMOKING: NO SMOKING Nothing Inside Vagina: No Douching, No [place], No Tampons Diet Discharge Diet: No Restrictions Symptoms to Report to : Bleeding Excessive, Pain Increased, Fever Over 101 Degrees F, Vaginal Bleeding Increase, Questions/Concerns For Any Problems or Questions: Contact Your Physician JONAH MCDONALD DO Dec 04, 2020 4:53 pm
[2020-12-04] MEDS ORDERED: DCS100C PO (16:55)
[2020-12-04] MEDS ORDERED: IBUP-1780 PO (16:55)
[2020-12-04] MEDS ORDERED: BENZ78AE5 TP (16:55)
[2020-12-04] MEDS ORDERED: ACHD5005 PO (16:55)
--- NOTE | 2020-12-04 16:59 | OB Labor & Delivery Record ---
L&D History Date of Service Date of Service: Dec 04, 2020 History Expected Date of Delivery: Dec 17, 2020 Gestational Age in Weeks: 38 Hx : 3 Hx Para: 2 Complications Events: Routine care Operative Indications (Cesarea: N/A-Vaginal Delivery Intrapartal Events: None L&D Stage1 Stage One Onset of Labor - Date: Dec 04, 2020 Monitors and Tracing Monitor Mode: External Heart Rate: 125 Monitor Accelerations: Uniform Monitor Decelerations: None Custodial Variability: Average (6-10) Short Term Variability: Present Presentation: Vertex Vital Signs VS - Last 72 Hours, by Label 12/04/20 12/04/20 12/04/20 12/04/20 09:19 10:10 10:30 10:45 Temp 36.5 Pulse 89 77 69 75 Resp 18 18 18 18 B/P (MAP) 121/67 (85) 117/62 (80) 113/62 (79) Pulse Ox 97 O2 Delivery Room Air Room Air Room Air Room Air 12/04/20 12/04/20 12/04/20 12/04/20 11:00 11:15 11:30 11:40 Pulse 72 71 64 66 Resp 18 18 18 18 B/P (MAP) 116/61 (79) 111/72 (85) 115/71 (86) 169/65 (99) Pulse Ox 100 O2 Delivery Room Air Room Air Room Air Room Air 12/04/20 12/04/20 12/04/20 12/04/20 11:45 11:50 11:55 12:00 Pulse 63 68 73 71 Resp 18 18 18 18 B/P (MAP) 121/56 (77) 114/67 (83) 101/60 (74) Pulse Ox 100 100 100 100 O2 Delivery Room Air Room Air Room Air Room Air 12/04/20 12/04/20 12/04/20 12/04/20 12:05 12:10 12:15 12:20 Temp 36.0 Pulse 65 69 65 69 Resp 18 18 18 18 B/P (MAP) 125/57 (79) 118/62 (80) 111/75 (87) 116/78 (91) Pulse Ox 98 97 97 97 O2 Delivery Room Air Room Air Room Air Room Air 12/04/20 12/04/20 12/04/20 12/04/20 12:25 12:30 12:45 13:00 Pulse 58 64 64 60 Resp 18 18 18 18 B/P (MAP) 111/69 (83) 102/67 (79) 102/67 (79) Pulse Ox 98 98 98 99 O2 Delivery Room Air Room Air Room Air Room Air 12/04/20 12/04/20 12/04/20 12/04/20 13:15 13:30 13:45 14:00 Pulse 62 57 68 58 Resp 18 18 18 18 B/P (MAP) 107/58 (74) 106/59 (75) 106/75 (85) 115/67 (83) Pulse Ox 98 97 99 100 O2 Delivery Room Air Room Air Room Air Room Air Rupture of Membranes Spontaneous Ruture of Membrane: No Amniotic Membrane Rupture Time: 1225 Amniotic Membrane Fluid Desc.: Clear Vaginal Bleeding Description: Normal Show Induction/Anesthesia Epidural Cath Placement - Time: 1148 Progress/Notes Patient admitted for IOL, pitocin augmentation used, epidural received, and she progressed after AROM to complete and +2 station. L&D Stage2 Stage Two Stage II Date: Dec 04, 2020 Monitors and Tracing Monitor Mode: External Heart Rate: 125 Monitor Accelerations: Uniform Monitor Decelerations: Early Custodial Variability: Average (6-10) Short Term Variability: Present Position: Right Occiput Anterior Presentation: Vertex Cord Descript/Complications Cord Vessel Description: 3 Vessels Delivery Type Delivery Method: Spontaneous Vaginal Anterior Shoulder: Left Episiotomy/Perineal Laceration Laceraction(s)/Extensions: Yes Episiotomy Description: Periurethral Extnsion/lac, Perineal Extension/lac, 1st degree Degree (describe repair) lacerations repaired using 3-0 rapide in usual fashion Condition of Delivery 1 minute Comment: 8 5 minute Comment: 9 Notes Live male infant weight 7lbs 14 oz Condition of Infant Condition of : Living Exam: No Observed Abnormalities Resuscitation Resuscitation: N/A - Spontaneous Resp L&D Stage3 Stage Three Stage III Date: Dec 04, 2020 Pictocin Pitocin Administration mu/min: 10 Pitocin ml/hr: 10 Pitocin Administration Comment: 30 mu wide open after delivery of placenta Placenta Delivery Placenta Delivery: Spontaneous Delivery Summary Summary Estimated blood loss (mL): 350 Attending at delivery: Jonah Mcdonald DO Condition of Delivery Examined: Cervix Examined, Uterus Explored Post Hemorrhage: No Condition of Mother stable Condition of Infant (s) stable JONAH MCDONALD DO Dec 04, 2020 4:59 pm
[2020-12-04] MEDS ORDERED: HYDROcodone/APAP 5 MG/325 MG (LORTAB) TAB PO PRN (17:00)
[2020-12-04] MEDS: IBUPROFEN 800 MG (MOTRIN) TAB PO SCH (18:38)
[2020-12-04] MEDS: ACETAMINOPHEN 500 MG TAB (TYLENOL) PO SCH (21:40)
[2020-12-04] MEDS: DOCUSATE SODIUM 100 MG (COLACE) CAP PO SCH (21:41)
[2020-12-05 01:00] VITALS: BP 105/59
[2020-12-05] MEDS: IBUPROFEN 800 MG (MOTRIN) TAB PO SCH ×3 (01:08→18:27)
[2020-12-05 03:15] VITALS: BP 106/59
[2020-12-05 06:06] LABS: BASOPHILS # (AUTO) 0.1 10^3/uL (0.0-0.1); BASOPHILS % (AUTO) 1 % (0-10); EOSINOPHILS # (AUTO) 0.4 10^3/uL (0.0-0.3); EOSINOPHILS % (AUTO) 3 % (0-10); HEMATOCRIT 26 % (35-52); HEMOGLOBIN 8.9 g/dL (11.5-16.0); LYMPHOCYTES % (AUTO) 24 % (12-44); MEAN CORPUSCULAR HEMOGLOBIN 32 pg (25-34); MEAN CORPUSCULAR HGB CONC 34 g/dL (32-36); MEAN CORPUSCULAR VOLUME 95 fL (80-99); MEAN PLATELET VOLUME 12.7 fL (9.0-12.2); MONOCYTES # (AUTO) 0.7 10^3/uL (0.0-1.0); MONOCYTES % (AUTO) 6 % (0-12); NEUTROPHILS # (AUTO) 8.4 10^3/uL (1.8-7.8); NEUTROPHILS % (AUTO) 66 % (42-75); PLATELET COUNT 119 10^3/uL (130-400); WHITE BLOOD COUNT 12.7 10^3/uL (4.3-11.0)
[2020-12-05] MEDS: ACETAMINOPHEN 500 MG TAB (TYLENOL) PO SCH ×2 (06:08→18:27)
[2020-12-05] MEDS: CATHETER FLUSH 10 ML SYR IV SCH (06:08)
[2020-12-05] MEDS ORDERED: PRENATAL VITAMIN 1 EA TAB PO SCH (07:00)
--- NOTE | 2020-12-05 08:53 | Postpartum Progress Note ---
Note Note Day # 1 Subjective: Patient is without complaints. Ambulating, voiding. Tolerating a regular diet without nausea or vomiting. Normal lochia. Pain is well controlled with oral pain medications. Objective: Physical Exam: General - Alert and oriented, no apparent distress Abdomen - Soft, appropriately tender to palpation, non-distended, fundus firm at umbilicus Extremities - no edema, negative Rian's bilaterally Assessment: PPD 1 NVD Successful TOLAC Acute blood loss anemia Plan: Routine care. Encourage breast feeding. Encourage ambulation. Ferrous sulfate supplementation. Plan for discharge today Vitals - Labs Vital Signs - I&O Vital Signs Date Time Temp Pulse Resp B/P (MAP) Pulse Ox O2 Delivery O2 Flow Rate FiO2 12/05/20 03:15 36.1 65 18 106/59 (75) 97 Room Air 12/05/20 01:00 36.4 73 18 105/59 (74) 97 Room Air 12/04/20 20:00 36.4 70 18 109/55 (73) 99 Room Air 12/04/20 18:15 36.2 64 18 119/73 (88) Room Air 12/04/20 18:00 57 18 111/69 (83) Room Air 12/04/20 17:45 69 18 132/67 (88) Room Air 12/04/20 17:15 68 18 105/53 (70) Room Air 12/04/20 17:00 86 18 121/74 (90) Room Air 12/04/20 16:45 86 18 121/74 (90) Room Air 12/04/20 16:15 18 122/71 (88) Room Air 12/04/20 16:00 91 18 120/69 (86) Room Air 12/04/20 15:30 67 18 122/62 (82) 96 Room Air 12/04/20 15:15 57 18 119/70 (86) 100 Room Air 12/04/20 15:00 59 18 122/74 (90) 100 Room Air 12/04/20 14:45 64 18 107/74 (85) 98 Room Air 12/04/20 14:30 71 18 100/65 (77) 100 Room Air 12/04/20 14:15 60 18 121/65 (83) 99 Room Air 12/04/20 14:00 58 18 115/67 (83) 100 Room Air 12/04/20 13:45 68 18 106/75 (85) 99 Room Air 12/04/20 13:30 57 18 106/59 (75) 97 Room Air 12/04/20 13:15 62 18 107/58 (74) 98 Room Air 12/04/20 13:00 60 18 102/67 (79) 99 Room Air 12/04/20 12:45 64 18 102/67 (79) 98 Room Air 12/04/20 12:30 64 18 98 Room Air 12/04/20 12:25 58 18 111/69 (83) 98 Room Air 12/04/20 12:20 36.0 69 18 116/78 (91) 97 Room Air 12/04/20 12:15 65 18 111/75 (87) 97 Room Air 12/04/20 12:10 69 18 118/62 (80) 97 Room Air 12/04/20 12:05 65 18 125/57 (79) 98 Room Air 12/04/20 12:00 71 18 101/60 (74) 100 Room Air 12/04/20 11:55 73 18 100 Room Air 12/04/20 11:50 68 18 114/67 (83) 100 Room Air 12/04/20 11:45 63 18 121/56 (77) 100 Room Air 12/04/20 11:40 66 18 169/65 (99) 100 Room Air 12/04/20 11:30 64 18 115/71 (86) Room Air 12/04/20 11:15 71 18 111/72 (85) Room Air 12/04/20 11:00 72 18 116/61 (79) Room Air 12/04/20 10:45 75 18 113/62 (79) Room Air 12/04/20 10:30 69 18 117/62 (80) Room Air 12/04/20 10:10 77 18 121/67 (85) Room Air 12/04/20 09:19 36.5 89 18 97 Room Air I & O 12/05/20 07:00 Intake Total 1037.0 ml Balance 1037.0 ml Labs Laboratory Tests 12/04/20 10:25: White Blood Count 11.3H, Red Blood Count 3.61L, Hemoglobin 11.6, Hematocrit 35, Mean Corpuscular Volume 96, Mean Corpuscular Hemoglobin 32, Mean Corpuscular Hemoglobin Concent 33, Red Cell Distribution Width 12.8, Platelet Count 136, Mean Platelet Volume 12.4H, Immature Granulocyte % (Auto) 1, Neutrophils (%) (Auto) 73, Lymphocytes (%) (Auto) 18, Monocytes (%) (Auto) 6, Eosinophils (%) (Auto) 3, Basophils (%) (Auto) 0, Neutrophils # (Auto) 8.2H, Lymphocytes # (Auto) 2.0, Monocytes # (Auto) 0.6, Eosinophils # (Auto) 0.3, Basophils # (Auto) 0.1, Immature Granulocyte # (Auto) 0.1 12/05/20 05:42: White Blood Count 12.7H, Red Blood Count 2.77L, Hemoglobin 8.9#L, Hematocrit 26L , Mean Corpuscular Volume 95, Mean Corpuscular Hemoglobin 32, Mean Corpuscular Hemoglobin Concent 34, Red Cell Distribution Width 12.7, Platelet Count 119L, Mean Platelet Volume 12.7H, Immature Granulocyte % (Auto) 1, Neutrophils (%) (Auto) 66, Lymphocytes (%) (Auto) 24, Monocytes (%) (Auto) 6, Eosinophils (%) (Auto) 3, Basophils (%) (Auto) 1, Neutrophils # (Auto) 8.4H, Lymphocytes # (Auto) 3.0, Monocytes # (Auto) 0.7, Eosinophils # (Auto) 0.4H, Basophils # (Auto) 0.1, Immature Granulocyte # (Auto) 0.1 JONAH MCDONALD DO Dec 05, 2020 8:52 am
[2020-12-05 09:50] VITALS: BP 122/75
[2020-12-05] MEDS: DOCUSATE SODIUM 100 MG (COLACE) CAP PO SCH (09:50)
--- NOTE | 2020-12-05 14:19 | Anesthesia-Regional Post-Op ---
Regional Patient Condition Mental Status: Alert, Oriented x3 Circulation: Same as Pre-Op Headache: Absent Sensation: Full Recovery Motor Block: Absent Post Op Complications Complications None Follow Up Care/Instructions Patient Instructions None needed. Anesthesia/Patient Condition Patient is doing well, no complaints, stable vital signs, no apparent adverse anesthesia problems. No complications reported per nursing. CLAUDINE LUGO CRNA Dec 05, 2020 14:19
[2020-12-05 18:30] VITALS: BP 134/70
[2020-12-05 19:30] VITALS: BP 118/67
[2020-12-05] MEDS ORDERED: SERTRALINE 50 MG (ZOLOFT) TABLET PO SCH (21:00)
== END 2020-12-05 19:45 | disposition home or self-care (01) | DRG 806 ==
LOC: LDRP 09:03
PROVIDERS: ADMIT Obstetrics & Gynecology; ATTEND Obstetrics & Gynecology
PROC: 10E0XZZ Delivery of Products of Conception, External Approach (ICD-10-PCS; principal; 2020-12-04)
PROC: 0HQ9XZZ Repair Perineum Skin, External Approach (ICD-10-PCS; 2020-12-04)
PROC: 0UQMXZZ Repair Vulva, External Approach (ICD-10-PCS; 2020-12-04)
PROC: 3E033VJ Introduction of Other Hormone into Peripheral Vein, Percutaneous Approach (ICD-10-PCS; 2020-12-04)
DX: O41.03X0 Oligohydramnios, third trimester, not applicable or unspecified (principal); D62 Acute posthemorrhagic anemia; Z37.0 Single live birth; Z3A.38 38 weeks gestation of pregnancy; O99.824 Streptococcus B carrier state complicating childbirth; O90.81 Anemia of the puerperium
CPT/HCPCS: 36415; 85025; 86850; 86900; 86901

== ENCOUNTER → 2022-06-15 | Outpatient (CLI) | payer BC ==
[~2022-06-15] MED LIST changes: +BENZ78AE5 TP; +DOCU-239 PO; +IBUP-1780 PO
--- NOTE | 2022-06-15 16:56 | Diagnostic Imaging Report ---
INDICATION: patient, survey. TECHNIQUE: Multiple real-time grayscale images were obtained over the gravid uterus. COMPARISON: None during this . FINDINGS: A single live intrauterine fetus is seen measuring at 20 weeks 5 days by composite measurements. Fetus is in transverse orientation with amniotic fluid index 12.56 cm. The gestational sac had a normal-appearing shape. Placenta is anterior with complete previa. Cervical length is 6 cm. heart rate is 153 bpm. survey demonstrates normal-appearing kidneys and bladder. stomach appeared normal. Intracranial ventricles appear normal. Four-chamber heart view appeared normal. spine appeared unremarkable. Three-vessel cord and cord insertion appeared normal. Biometrical measurements are as follows: Biparietal 4.74 cm, age 20 weeks 3 days. Head circumference 17.77 cm, age 20 weeks 2 days. Abdominal circumference 16.75 cm, age 21 weeks 6 days. Femur length 3.26 cm, age 20 weeks 2 days. Sonographic estimate age: 20 weeks 5 days. Sonographic estimated date of delivery: 10/28/2022. Estimated Weight: 388 gm (+/- 57 gm). LMP percentile: 81%. heart rate: 153 beats per minute. number: 1 of 1. IMPRESSION: Single live intrauterine fetus measuring 20 weeks 5 days in size. Placenta previa is noted, short-term follow-up is recommended. Dictated by: Dictated on workstation # [id number]
== END ==
LOC: RAD 09:33
PROVIDERS: ATTEND Nurse Practitioner Women's Health
DX: O44.02 Complete placenta previa NOS or without hemorrhage, second trimester (principal); Z3A.20 20 weeks gestation of pregnancy
CPT/HCPCS: 76805

== ENCOUNTER 2022-10-21 09:41 | Inpatient (IN) | payer BC ==
[~2022-10-21] VITALS: Ht 167.4 cm; Wt 84.0 kg
[2022-10-21] VITALS (48 sets, daily range): BP systolic 97–131; BP diastolic 50–75
[2022-10-21 10:16] LABS: BILIRUBIN,URINE NEGATIVE (NEGATIVE); CLARITY,URINE CLEAR; COLOR,URINE YELLOW; GLUCOSE, URINE (UA) 1+ (NEGATIVE); KETONES,URINE NEGATIVE (NEGATIVE); LEUKOCYTE ESTERASE ,URINE NEGATIVE (NEGATIVE); NITRITE,URINE NEGATIVE (NEGATIVE); PROTEIN,URINE NEGATIVE (NEGATIVE)
[2022-10-21 10:29] LABS: BACTERIA,URINE TRACE /HPF; SQUAMOUS EPITHELIAL CELL,UR RARE /HPF
[2022-10-21] MEDS ORDERED: LACTATED RINGERS 1,000 ML IV SCH ×2 (12:45→13:45)
[2022-10-21] MEDS ORDERED: D5 LR IV SOLUTION 1,000 ML IV SCH (15:15)
[2022-10-21 15:51] LABS: BASOPHILS # (AUTO) 0.1 10^3/uL (0.0-0.1); BASOPHILS % (AUTO) 1 % (0-10); EOSINOPHILS # (AUTO) 0.3 10^3/uL (0.0-0.3); EOSINOPHILS % (AUTO) 3 % (0-10); HEMATOCRIT 30 % (35-52); HEMOGLOBIN 9.8 g/dL (11.5-16.0); LYMPHOCYTES # (AUTO) 2.6 X 10^3 (1.0-4.0); LYMPHOCYTES % (AUTO) 23 % (12-44); MEAN CORPUSCULAR HEMOGLOBIN 29 pg (25-34); MEAN CORPUSCULAR HGB CONC 33 g/dL (32-36); MEAN CORPUSCULAR VOLUME 90 fL (80-99); MEAN PLATELET VOLUME 12.3 fL (9.0-12.2); MONOCYTES # (AUTO) 0.8 X 10^3 (0.0-1.0); MONOCYTES % (AUTO) 7 % (0-12); NEUTROPHILS # (AUTO) 7.7 X 10^3 (1.8-7.8); NEUTROPHILS % (AUTO) 67 % (42-75); PLATELET COUNT 155 10^3/uL (130-400); WHITE BLOOD COUNT 11.5 10^3/uL (4.3-11.0)
[2022-10-21] MEDS ORDERED: CATHETER FLUSH 10 ML SYR IV PRN (16:00)
[2022-10-21] MEDS ORDERED: fentaNYL 2 mcg/ml BUPIVA 0.125 100 ML EPI SCH (16:00)
[2022-10-21] MEDS ORDERED: LACTATED RINGERS 1,000 ML IV ONE (16:00)
[2022-10-21] MEDS ORDERED: NALOXONE 0.4 MG/ML 1 ML (NARCAN) VIAL IV PRN ×2 (16:00→23:30)
[2022-10-21] MEDS ORDERED: BUPIVACAINE 0.25% 10 ML (SENSORCAINE) VIAL ONE (16:08)
[2022-10-21] MEDS ORDERED: fentaNYL INJ 100 MCG/2 ML AMP ONE (16:08)
[2022-10-21] MEDS: OXYTOCIN PRE-MIX DRIP 500 ML IV SCH ×4 (17:35→22:46)
[2022-10-21] MEDS ORDERED: LIDOCAINE/EPI 2% 1:200,00 (XYLOCAINE) 20 ML VIAL ONE (21:35)
[2022-10-21] MEDS ORDERED: CATHETER FLUSH 10 ML SYR IV SCH (22:00)
--- NOTE | 2022-10-21 23:21 | History & Physical-OB ---
OB - Chief Complaint & HPI Date/Time Date of Admission: Date of Admission: Oct 21, 2022 at 15:09 Date seen by a Provider: Oct 21, 2022 Time Seen by a Provider: 15:30 Chief Complaint/History OB-Reason for Admission/Chief: Onset of Labor Hx : 4 Hx Para: 3 Expected Date of Delivery: Oct 31, 2022 Gestational Age in Weeks: 38 Gestational Age in Days: 4 Admission Nurse Assessment Rev: Yes History of Labs A pos Antibody neg RI RPR NR HBsAg NR HIV NR GC neg GBS neg Allergies and Home Medications Allergies Coded Allergies: morphine (Unverified Allergy, Mild, RASH, 04/14/10) Patient Home Medication List Home Medication List Reviewed: Yes Benzocaine/Menthol (Dermoplast Pain Relieving [place]) 78 Gm Aerosol, 56 EA TP UD PRN for PAIN- SEE INSTRUCTIONS Prescribed by: JONAH MCDONALD on 12/04/201654 Docusate Sodium (Dok) 100 Mg Capsule, 100 MG PO BID PRN for CONSTIPATION-1ST LINE Prescribed by: JONAH MCDONALD on 12/04/20 165 Hydrocodone Bit/Acetaminophen (HYDROcodone/APAP 5 MG/325 MG TAB) 1 Tab Tab, 1 EA PO Q4H PRN for PAIN-MODERATE (5-7) Prescribed by: JONAH MCDONALD on 12/04/20 165 Ibuprofen (Ibuprofen) 800 Mg Tablet, 800 MG PO Q8H PRN for CONSTIPATION-1ST LINE Prescribed by: JONAH MCDONALD on 12/04/20 165 OB - History Hx of Present Care: Yes Ultrasounds: Normal mid trimester US Obstetrical Complications: None Medical Complications: None Obstetrical History Hx : 4 Hx Para: 3 Delivery History Hx Blood Disorders: No Adverse Rxn to Tranfusion: No Patient Past Medical History n/a Social History/Family History Alcohol Use: Denies Use Recreational Drug Use: No Immunizations Influenza Vaccine Up-to-Date: No; Not Current Hepatitis A: No Hepatitis B: No Tetanus Booster (TDap): Less than 5yrs OB - Admission Exam Physical Exam Vitals: Vital Signs 10/21/22 10/21/22 19:18 20:59 Temp 36.2 Pulse 65 Resp 18 B/P (MAP) 101/57 (72) Pulse Ox 100 O2 Delivery Room Air HEENT: NCAT Heart: Rhythm Normal Lungs: Clear Abdomen: Gravid Extremities: Normal Reflexes: Normal Cervical Dilatation: 5cm Effacement: 75% Station: -1 Membranes: Intact Heart Rate: 120's Accelerations: Accelerations Present Decelerations: No Decelerations Short Term Variability: Present Administrative Program Specialist Variability: Average (6-25) Contractions on Admission: < 5 Minutes Apart Intensity: Firm Labs Laboratory Tests Test 10/21/22 09:55 10/21/22 15:37 Range/Units Urine Color YELLOW Urine Clarity CLEAR Urine pH 6.0 5-9 Urine Specific [place] <=1.005 1.016-1.022 Urine Protein NEGATIVE NEGATIVE Urine Glucose (UA) 1+ H NEGATIVE Urine Ketones NEGATIVE NEGATIVE Urine Nitrite NEGATIVE NEGATIVE Urine Bilirubin NEGATIVE NEGATIVE Urine Urobilinogen 0.2 < = 1.0 MG/DL Urine Leukocyte Esterase NEGATIVE NEGATIVE Urine RBC (Auto) NEGATIVE NEGATIVE Urine RBC NONE /HPF Urine WBC NONE /HPF Urine Squamous Epithelial Cells RARE /HPF Urine Crystals NONE /LPF Urine Bacteria TRACE /HPF Urine Casts NONE /LPF Urine Mucus NEGATIVE /LPF Urine Culture Indicated CULTURE PENDING White Blood Count 11.5 H 4.3-11.0 10^3/uL Red Blood Count 3.33 L 3.80-5.11 10^6/uL Hemoglobin 9.8 L 11.5-16.0 g/dL Hematocrit 30 L 35-52 % Mean Corpuscular Volume 90 80-99 fL Mean Corpuscular Hemoglobin 29 25-34 pg Mean Corpuscular Hemoglobin Concent 33 32-36 g/dL Red Cell Distribution Width 13.3 10.0-14.5 % Platelet Count 155 130-400 10^3/uL Mean Platelet Volume 12.3 H 9.0-12.2 fL Immature Granulocyte % (Auto) 1 % Neutrophils (%) (Auto) 67 42-75 % Lymphocytes (%) (Auto) 23 12-44 % Monocytes (%) (Auto) 7 0-12 % Eosinophils (%) (Auto) 3 0-10 % Basophils (%) (Auto) 1 0-10 % Neutrophils # (Auto) 7.7 1.8-7.8 X 10^3 Lymphocytes # (Auto) 2.6 1.0-4.0 X 10^3 Monocytes # (Auto) 0.8 0.0-1.0 X 10^3 Eosinophils # (Auto) 0.3 0.0-0.3 10^3/uL Basophils # (Auto) 0.1 0.0-0.1 10^3/uL Immature Granulocyte # (Auto) 0.1 0.0-0.1 10^3/uL Syphilis Total Antibody Negative Negative OB - Assessment/Plan/Diagnosis Assessment Assessment: active labor Admission Dx 32 yo @ 38 weeks TOLAC Active labor GBS neg Admission Status: Inpatient Order (span 2 midnights) Reason for Inpatient Admission: 38 week active labor Plan Plan: Expectant Management JONAH MCDONALD DO Oct 21, 2022 23:21
--- NOTE | 2022-10-21 23:25 | OB Labor & Delivery Record ---
L&D History Date of Service Date of Service: Oct 21, 2022 History Expected Date of Delivery: Oct 31, 2022 Gestational Age in Weeks: 38 Hx : 4 Hx Para: 3 Complications Events: Routine care Operative Indications (Cesarea: N/A-Vaginal Delivery Intrapartal Events: None L&D Stage1 Stage One Onset of Labor - Date: Oct 21, 2022 Monitors and Tracing Monitor Mode: External Heart Rate: 130 Station: -2 Release And Technical Records Clerk Variability: Average (6-10) Short Term Variability: Present Presentation: Vertex Vital Signs VS - Last 72 Hours, by Label 10/21/22 10/21/22 10/21/22 10/21/22 09:45 09:47 14:45 16:15 Temp 36.6 36.3 36.5 Pulse 80 78 70 70 Resp 18 18 18 18 B/P (MAP) 121/75 122/67 (85) 124/61 (82) Pulse Ox 99 99 99 O2 Delivery Room Air Room Air Room Air Room Air 10/21/22 10/21/22 10/21/22 10/21/22 16:20 16:25 16:30 16:35 Pulse 85 81 83 100 Resp 18 18 18 18 B/P (MAP) 117/59 (78) 115/53 (73) 113/59 (77) 117/60 (79) Pulse Ox 99 99 98 98 O2 Delivery Room Air Room Air Room Air Room Air 10/21/22 10/21/22 10/21/22 10/21/22 16:40 16:45 16:50 16:55 Pulse 100 83 85 73 Resp 18 18 18 18 B/P (MAP) 122/61 (81) 124/64 (84) 130/57 (81) 118/63 (81) Pulse Ox 98 97 97 97 O2 Delivery Room Air Room Air Room Air Room Air 10/21/22 10/21/22 10/21/22 10/21/22 17:00 17:15 17:30 17:45 Pulse 76 87 87 70 Resp 18 18 18 18 B/P (MAP) 115/61 (79) 102/56 (71) 102/56 (71) 113/55 (74) Pulse Ox 96 97 97 96 O2 Delivery Room Air Room Air Room Air Room Air 10/21/22 10/21/22 10/21/22 10/21/22 18:00 18:15 18:30 18:45 Pulse 70 68 63 65 Resp 18 18 18 18 B/P (MAP) 107/55 (72) 111/58 (75) 114/61 (78) 112/55 (74) Pulse Ox 96 95 97 98 O2 Delivery Room Air Room Air Room Air Room Air 10/21/22 10/21/22 10/21/22 10/21/22 19:00 19:18 19:30 19:33 Temp 36.2 Pulse 61 63 71 67 Resp 18 18 18 18 B/P (MAP) 115/56 (75) 113/59 (77) 107/62 (77) 112/63 (79) Pulse Ox 99 100 99 99 O2 Delivery Room Air Room Air Room Air Room Air 10/21/22 10/21/22 10/21/22 10/21/22 19:38 19:45 19:53 19:58 Pulse 75 82 67 70 Resp 18 18 18 18 B/P (MAP) 117/66 (83) 111/66 (81) 126/56 (79) 123/62 (82) Pulse Ox 98 98 99 99 O2 Delivery Room Air Room Air Room Air Room Air 10/21/22 10/21/22 10/21/22 10/21/22 20:03 20:09 20:15 20:19 Pulse 67 66 68 73 Resp 18 18 18 18 B/P (MAP) 110/65 (80) 110/66 (81) 114/54 (74) 118/67 (84) Pulse Ox 98 97 98 98 O2 Delivery Room Air Room Air Room Air Room Air 10/21/22 10/21/22 10/21/22 10/21/22 20:25 20:29 20:33 20:40 Pulse 68 71 76 71 Resp 18 18 18 18 B/P (MAP) 116/70 (85) 111/53 (72) 118/70 (86) 110/50 (70) Pulse Ox 98 98 100 100 O2 Delivery Room Air Room Air Room Air Room Air 10/21/22 10/21/22 10/21/22 10/21/22 20:45 20:50 20:55 20:59 Pulse 84 62 68 65 Resp 18 18 18 18 B/P (MAP) 126/71 (89) 97/50 (66) 109/54 (72) 101/57 (72) Pulse Ox 98 97 100 100 O2 Delivery Room Air Room Air Room Air Room Air Rupture of Membranes Spontaneous Ruture of Membrane: No Amniotic Membrane Rupture Time: 1708 Amniotic Membrane Fluid Desc.: Clear Vaginal Bleeding Description: Normal Show Induction/Anesthesia Epidural Cath Placement - Time: 1619 Progress/Notes Patient admitted in active labor, epidural placed per TOLAC/ protocol. She progressed after arom to complete and + 3 station L&D Stage2 Stage Two Stage II Date: Oct 21, 2022 Monitors and Tracing Monitor Mode: External Heart Rate: 130 Monitor Decelerations: Variable Fdc Variability: Average (6-10) Short Term Variability: Present Position: Right Occiput Anterior Presentation: Vertex Cord Descript/Complications Cord Vessel Description: 3 Vessels Delivery Type Infant Delivery Method: Spontaneous Vaginal Anterior Shoulder: Left Episiotomy/Perineal Laceration Laceraction(s)/Extensions: Yes Degree (describe repair) right labial laceration repaired using 3-0 rapide vicryl suture Condition of Infant Delivery Notes Live male infant weight and apgars pending Condition of Infant Condition of : Living Exam: No Observed Abnormalities Resuscitation Resuscitation: N/A - Spontaneous Resp L&D Stage3 Stage Three Stage III Date: Oct 21, 2022 Pictocin Pitocin Administration mu/min: 6 Pitocin ml/hr: 6 Pitocin Administration Comment: 30 mu wide open after delivery of placenta Placenta Delivery Placenta Delivery: Spontaneous Delivery Summary Summary Estimated blood loss (mL): 250 Attending at delivery: Jonah Mcdonald DO Condition of Delivery Examined: Cervix Examined, Uterus Explored Post Hemorrhage: No Condition of Mother stable Condition of (s) stable JONAH MCDONALD DO Oct 21, 2022 23:25
[2022-10-21] MEDS ORDERED: MEASLES,MUMPS,RUBELLA 1 EA INJ SQ ONE (23:30)
[2022-10-21] MEDS ORDERED: BENZOCAINE/MENTHOL (DERMOPLAST) 56 ML CAN TP PRN (23:30)
[2022-10-21] MEDS ORDERED: WITCH HAZEL(TUCKS) 40 EA JAR TOP PRN (23:30)
[2022-10-21] MEDS ORDERED: TETANUS,DIPTH,PERTUSS P/F (BOOSTRIX) 0.5 ML VIAL IM ONE (23:30)
[2022-10-21] MEDS ORDERED: DIBUCAINE 1% OINTMENT 28 GM TUBE TOP PRN (23:30)
[2022-10-21] MEDS ORDERED: HYDROcodone/APAP 5 MG/325 MG (LORTAB) TAB PO PRN (23:30)
[2022-10-22] MEDS ORDERED: BENZOCAINE/MENTHOL (DERMOPLAST) 56 ML CAN TP ONE (00:23)
[2022-10-22] MEDS ORDERED: IBUPROFEN 600 MG (MOTRIN) TAB PO ONE (00:23)
[2022-10-22] MEDS: IBUPROFEN 600 MG (MOTRIN) TAB PO SCH ×5 (00:26→23:31)
[2022-10-22 03:00] VITALS: BP 113/61
[2022-10-22] MEDS ORDERED: CATHETER FLUSH 10 ML SYR IV SCH (06:00)
[2022-10-22 06:01] LABS: BASOPHILS # (AUTO) 0.1 10^3/uL (0.0-0.1); BASOPHILS % (AUTO) 1 % (0-10); EOSINOPHILS # (AUTO) 0.2 10^3/uL (0.0-0.3); EOSINOPHILS % (AUTO) 1 % (0-10); HEMATOCRIT 30 % (35-52); HEMOGLOBIN 9.7 g/dL (11.5-16.0); LYMPHOCYTES # (AUTO) 2.9 10^3/uL (1.0-4.0); LYMPHOCYTES % (AUTO) 19 % (12-44); MEAN CORPUSCULAR HEMOGLOBIN 30 pg (25-34); MEAN CORPUSCULAR HGB CONC 32 g/dL (32-36); MEAN CORPUSCULAR VOLUME 91 fL (80-99); MEAN PLATELET VOLUME 12.9 fL (9.0-12.2); MONOCYTES # (AUTO) 1.1 10^3/uL (0.0-1.0); MONOCYTES % (AUTO) 8 % (0-12); NEUTROPHILS # (AUTO) 10.4 10^3/uL (1.8-7.8); NEUTROPHILS % (AUTO) 71 % (42-75); PLATELET COUNT 183 10^3/uL (130-400); WHITE BLOOD COUNT 14.7 10^3/uL (4.3-11.0)
--- NOTE | 2022-10-22 07:38 | Postpartum Progress Note ---
Note Note Day # 1 Subjective: Patient is without complaints. Ambulating, voiding. Tolerating a regular diet without nausea or vomiting. Normal lochia. Pain is well controlled with oral pain medications. Objective: Physical Exam: General - Alert and oriented, no apparent distress Abdomen - Soft, appropriately tender to palpation, non-distended, fundus firm at umbilicus Extremities - no edema, negative Rian's bilaterally Assessment: PPD 1 NVD Anemia of Plan: Routine care. Encourage breast feeding. Encourage ambulation. Ferrous sulfate supplementation. Plan for discharge tomorrow Vitals - Labs Vital Signs - I&O Vital Signs Date Time Temp Pulse Resp B/P (MAP) Pulse Ox O2 Delivery O2 Flow Rate FiO2 10/22/22 03:00 36.4 77 18 113/61 (78) 99 Room Air 10/21/22 23:31 71 18 109/56 (73) Room Air 10/21/22 23:00 71 18 110/63 (79) Room Air 10/21/22 22:45 63 18 109/69 (82) Room Air 10/21/22 22:31 69 18 108/72 (84) Room Air 10/21/22 22:16 75 18 111/74 (86) Room Air 10/21/22 21:47 81 18 131/60 (83) Room Air 10/21/22 21:20 80 18 122/58 (79) 100 Room Air 10/21/22 21:13 76 18 131/59 (83) 100 Room Air 10/21/22 20:59 65 18 101/57 (72) 100 Room Air 10/21/22 20:55 68 18 109/54 (72) 100 Room Air 10/21/22 20:50 62 18 97/50 (66) 97 Room Air 10/21/22 20:45 84 18 126/71 (89) 98 Room Air 10/21/22 20:40 71 18 110/50 (70) 100 Room Air 10/21/22 20:33 76 18 118/70 (86) 100 Room Air 10/21/22 20:29 71 18 111/53 (72) 98 Room Air 10/21/22 20:25 68 18 116/70 (85) 98 Room Air 10/21/22 20:19 73 18 118/67 (84) 98 Room Air 10/21/22 20:15 68 18 114/54 (74) 98 Room Air 10/21/22 20:09 66 18 110/66 (81) 97 Room Air 10/21/22 20:03 67 18 110/65 (80) 98 Room Air 10/21/22 19:58 70 18 123/62 (82) 99 Room Air 10/21/22 19:53 67 18 126/56 (79) 99 Room Air 10/21/22 19:45 82 18 111/66 (81) 98 Room Air 10/21/22 19:38 75 18 117/66 (83) 98 Room Air 10/21/22 19:33 67 18 112/63 (79) 99 Room Air 10/21/22 19:30 71 18 107/62 (77) 99 Room Air 10/21/22 19:18 36.2 63 18 113/59 (77) 100 Room Air 10/21/22 19:00 61 18 115/56 (75) 99 Room Air 10/21/22 18:45 65 18 112/55 (74) 98 Room Air 10/21/22 18:30 63 18 114/61 (78) 97 Room Air 10/21/22 18:15 68 18 111/58 (75) 95 Room Air 10/21/22 18:00 70 18 107/55 (72) 96 Room Air 10/21/22 17:45 70 18 113/55 (74) 96 Room Air 10/21/22 17:30 87 18 102/56 (71) 97 Room Air 10/21/22 17:15 87 18 102/56 (71) 97 Room Air 10/21/22 17:00 76 18 115/61 (79) 96 Room Air 10/21/22 16:55 73 18 118/63 (81) 97 Room Air 10/21/22 16:50 85 18 130/57 (81) 97 Room Air 10/21/22 16:45 83 18 124/64 (84) 97 Room Air 10/21/22 16:40 100 18 122/61 (81) 98 Room Air 10/21/22 16:35 100 18 117/60 (79) 98 Room Air 10/21/22 16:30 83 18 113/59 (77) 98 Room Air 10/21/22 16:25 81 18 115/53 (73) 99 Room Air 10/21/22 16:20 85 18 117/59 (78) 99 Room Air 10/21/22 16:15 70 18 124/61 (82) 99 Room Air 10/21/22 14:45 36.5 70 18 122/67 (85) Room Air 10/21/22 09:47 36.3 78 18 121/75 99 Room Air 10/21/22 09:45 36.6 80 18 99 Room Air l I & O 10/22/22 07:00 Intake Total 2100 ml Balance 2100 ml Labs Laboratory Tests 10/21/22 09:55: Urine Color YELLOW, Urine Clarity CLEAR, Urine pH 6.0, Urine Specific [place] <=1.005, Urine Protein NEGATIVE, Urine Glucose (UA) 1+H, Urine Ketones NEGATIVE, Urine Nitrite NEGATIVE, Urine Bilirubin NEGATIVE, Urine Urobilinogen 0.2, Urine Leukocyte Esterase NEGATIVE, Urine RBC (Auto) NEGATIVE, Urine RBC NONE, Urine WBC NONE, Urine Squamous Epithelial Cells RARE, Urine Crystals NONE, Urine Bacteria TRACE, Urine Casts NONE, Urine Mucus NEGATIVE, Urine Culture Indicated CULTURE PENDING 10/21/22 15:37: White Blood Count 11.5H, Red Blood Count 3.33L, Hemoglobin 9.8L, Hematocrit 30L, Mean Corpuscular Volume 90, Mean Corpuscular Hemoglobin 29, Mean Corpuscular Hemoglobin Concent 33, Red Cell Distribution Width 13.3, Platelet Count 155, Mean Platelet Volume 12.3H, Immature Granulocyte % (Auto) 1, Neutrophils (%) (Auto) 67, Lymphocytes (%) (Auto) 23, Monocytes (%) (Auto) 7, Eosinophils (%) (Auto) 3, Basophils (%) (Auto) 1, Neutrophils # (Auto) 7.7, Lymphocytes # (Auto) 2.6, Monocytes # (Auto) 0.8, Eosinophils # (Auto) 0.3, Basophils # (Auto) 0.1, Immature Granulocyte # (Auto) 0.1, Syphilis Total Antibody Negative 10/22/22 05:22: White Blood Count 14.7H, Red Blood Count 3.28L, Hemoglobin 9.7L, Hematocrit 30L, Mean Corpuscular Volume 91, Mean Corpuscular Hemoglobin 30, Mean Corpuscular Hemoglobin Concent 32, Red Cell Distribution Width 13.2, Platelet Count 183, Mean Platelet Volume 12.9H, Immature Granulocyte % (Auto) 1, Neutrophils (%) (Auto) 71, Lymphocytes (%) (Auto) 19, Monocytes (%) (Auto) 8, Eosinophils (%) (Auto) 1, Basophils (%) (Auto) 1, Neutrophils # (Auto) 10.4H, Lymphocytes # (Auto) 2.9, Monocytes # (Auto) 1.1H, Eosinophils # (Auto) 0.2, Basophils # (Auto) 0.1, Immature Granulocyte # (Auto) 0.1 JONAH MCDONALD DO Oct 22, 2022 07:38
--- NOTE | 2022-10-22 07:40 | Discharge Inst-Women's Service ---
Discharge Inst-Women's Serv Depart Medication/Instructions New, Converted or Re-Newed RX: Transmitted to Pharmacy Final Diagnosis PPD 1 NVD Problems Reviewed?: Yes Consults/Follow Up Additional Follow Up: Yes Orders/Referrals Dr. Mcdonald in 6 weeks Activity Activity: Activity as Tolerated Driving Instructions: No Driving for 1 Week NO SMOKING: NO SMOKING Nothing Inside Vagina: No Douching, No [place], No Tampons Diet Discharge Diet: No Restrictions Symptoms to Report to : Bleeding Excessive, Pain Increased, Fever Over 101 Degrees F, Vaginal Bleeding Increase, Questions/Concerns For Any Problems or Questions: Contact Your Physician JONAH MCDONALD DO Oct 22, 2022 07:40
[2022-10-22] MEDS ORDERED: PNV1TABL67 PO (07:41)
[2022-10-22] MEDS ORDERED: IBUP-844 PO (07:41)
[2022-10-22] MEDS ORDERED: BENZ78AE5 TP (07:41)
[2022-10-22] MEDS ORDERED: DOCU100C37 PO (07:41)
[2022-10-22] MEDS ORDERED: ACHD5005 PO (07:41)
[2022-10-22] MEDS ORDERED: FERR325T24 PO (07:41)
[2022-10-22 08:00] VITALS: BP 104/58
--- NOTE | 2022-10-22 08:21 | Anesthesia-Regional Post-Op ---
Regional Patient Condition Mental Status: Alert, Oriented x3 Circulation: Same as Pre-Op Headache: Absent Sensation: Full Recovery Motor Block: Absent Post Op Complications Complications None Follow Up Care/Instructions Patient Instructions None needed. Anesthesia/Patient Condition Patient is doing well, no complaints, stable vital signs, no apparent adverse anesthesia problems. No complications reported per nursing. [place] [facility] [place] Yes WILL WILL CRNA Oct 22, 2022 08:21
[2022-10-22] MEDS: FERROUS SULF 325 MG (IRON) TAB PO SCH (10:17)
[2022-10-22] MEDS: DOCUSATE SODIUM 100 MG (COLACE) CAP PO SCH ×2 (10:17→20:30)
[2022-10-22] MEDS: PRENATAL VITAMIN 1 EA TAB PO SCH (10:17)
[2022-10-22 12:00] VITALS: BP 113/70
[2022-10-22 16:00] VITALS: BP 100/67
[2022-10-22 20:31] VITALS: BP 106/66
[2022-10-22 23:30] VITALS: BP 108/65
[2022-10-23 06:34] VITALS: BP 96/56
[2022-10-23] MEDS: IBUPROFEN 600 MG (MOTRIN) TAB PO SCH (06:35)
--- NOTE | 2022-10-23 07:23 | Postpartum Progress Note ---
Note Note Day # 2 Subjective: Patient is without complaints. Ambulating, voiding. Tolerating a regular diet without nausea or vomiting. Normal lochia. Pain is well controlled with oral pain medications. Objective: Physical Exam: General - Alert and oriented, no apparent distress Abdomen - Soft, appropriately tender to palpation, non-distended, fundus firm at umbilicus Extremities - no edema, negative Rian's bilaterally Assessment: PPD 2 NVD Plan: Routine care. Encourage breast feeding. Encourage ambulation. Ferrous sulfate supplementation. Plan for discharge today Vitals - Labs Vital Signs - I&O Vital Signs Date Time Temp Pulse Resp B/P (MAP) Pulse Ox O2 Delivery O2 Flow Rate FiO2 10/23/22 06:34 36.0 67 18 96/56 (69) 98 Room Air 10/22/22 23:30 36.3 74 18 108/65 (79) 97 Room Air 10/22/22 20:31 36.3 76 18 106/66 (79) 98 Room Air 10/22/22 18:10 37.1 10/22/22 16:00 36.4 81 16 100/67 (78) 97 Room Air 10/22/22 12:00 36.5 79 20 113/70 (84) 98 Room Air 10/22/22 08:00 36.7 76 22 104/58 (73) Room Air 98.00 Labs Microbiology 10/21/22 Urine Culture - Final, Complete Gram Pos Mixed Bacterial Merle See Comments JONAH MCDONALD DO Oct 23, 2022 07:23
[2022-10-23 08:47] VITALS: BP 108/71
[2022-10-23] MEDS: PRENATAL VITAMIN 1 EA TAB PO SCH (08:47)
[2022-10-23] MEDS: FERROUS SULF 325 MG (IRON) TAB PO SCH (08:47)
[2022-10-23] MEDS: DOCUSATE SODIUM 100 MG (COLACE) CAP PO SCH (08:47)
== END 2022-10-23 10:45 | disposition home or self-care (01) | DRG 807 ==
LOC: WSo 09:41 → LDRP 09:41 → WSo 15:09 → LDRP 10-22 01:23
PROVIDERS: ADMIT Obstetrics & Gynecology; ATTEND Obstetrics & Gynecology
PROC: 10E0XZZ Delivery of Products of Conception, External Approach (ICD-10-PCS; principal; 2022-10-21)
PROC: 10907ZC Drainage of Amniotic Fluid, Therapeutic from Products of Conception, Via Natural or Artificial Opening (ICD-10-PCS; 2022-10-21)
PROC: 0UQMXZZ Repair Vulva, External Approach (ICD-10-PCS; 2022-10-21)
DX: O34.211 Maternal care for low transverse scar from previous cesarean delivery (principal); Z37.0 Single live birth; Z3A.38 38 weeks gestation of pregnancy; O70.0 First degree perineal laceration during delivery; O99.02 Anemia complicating childbirth; D64.9 Anemia, unspecified
CPT/HCPCS: 36415; 81000; 85025; 86780; 86850; 86900; 86901; 87088